=== PATIENT | male | born 1940 | race Caucasian/White ===

== ENCOUNTER 2025-09-10 13:23 | Emergency (ER) | payer MEDICARE, MEDICAID ==
[~2025-09-10] VITALS: Ht 167.6 cm; Wt 82.0 kg
[2025-09-10 13:26] VITALS: O2SAT 97
[2025-09-10] MEDS: ACETAMINOPHEN 325MG TABLET PO ONE (16:21)
[2025-09-10 21:00] VITALS: BP 129/74; PULSE 68; RESP 18; TEMP 36.8; O2SAT 98
== END 2025-09-10 21:39 | disposition home or self-care (01) ==
LOC: ER 13:23
DX: Z00.00 Encounter for general adult medical examination without abnormal findings (principal); E11.9 Type 2 diabetes mellitus without complications
CPT/HCPCS: 99283